=== PATIENT | male | born 1985 | race Caucasian/White ===

== ENCOUNTER 2022-01-13 15:12 | Outpatient (CLI) | payer OTHER, SELFPAY ==
[2022-01-13 19:25] LABS: SARS PCR* Negative SARS-CoV-2 (Negative)
== END 2022-01-13 15:13 | disposition home or self-care (01) ==
LOC: LONREF 15:12
PROVIDERS: PCP Family Medicine; Visit Provider Family Medicine
DX: Z20.822 Contact with and (suspected) exposure to COVID-19 (principal); R05.9 Cough, unspecified
CPT/HCPCS: 87635

== ENCOUNTER 2023-01-28 14:01 | Outpatient (REF) | payer OTHER, SELFPAY ==
[2023-01-28 15:00] LABS: Basophils Percent Auto 0.6 % (0.0-3.0); Eosinophils Percent Auto 2.2 % (0.0-7.0); Hemoglobin* 14.6 gm/dL (13.5-17.5); Lymphocytes Percent Auto 34.7 % (20-44); Mean Corpuscular HGB Conc 34 gm/dL (32-36); Mean Corpuscular Hemoglobin 30 pg (26-34); Mean Corpuscular Volume 88 fL (80-100); Neutrophils Percent Auto 52.5 % (42.0-72.0); Platelet Count* 269 K/uL (140-440); RDW Coefficient of Variation % 12.6 % (11.5-15.5)
[2023-01-28 15:33] LABS: Slide Review Reflex No
[2023-01-28 16:35] LABS: Albumin* 4.6 g/dL (3.3-5.0); Chloride* 105 mmol/L (96-114)
[2023-01-28 16:36] LABS: Potassium* 4.4 mmol/L (3.6-5.1); Sodium* 140 mmol/L (135-149)
[2023-01-28 16:38] LABS: Anion Gap 6 mEq/L (7-15); Aspartate Amino Transferase* 40 U/L (12-35); Bilirubin Total* 0.6 mg/dL (0.1-1.5); Blood Urea Nitrogen* 11 mg/dL (5-24); Carbon Dioxide* 29 mmol/L (20-32); Cholesterol* 223 mg/dL (90-199); Creatinine* 0.7 mg/dL (0.5-1.5); Estimated Glomerular Filt Rate 122 ml/min; Total Protein* 7.6 g/dL (6.0-8.3)
[2023-01-28 16:39] LABS: Alanine Aminotransferase* 19 U/L (4-50); Alkaline Phosphatase* 57 U/L (40-150); Calcium* 9.3 mg/dL (8.4-10.6); Glucose* 105 mg/dL (60-115); HDL Cholesterol* 44 mg/dL (>=40)
[2023-01-28 17:23] LABS: Iron* 114 ug/dL (49-181)
[2023-01-28 17:33] LABS: Percent Iron Saturation 33 % (20-50); Total Iron Binding Capacity 342 ug/dL (261-462)
[2023-01-28 17:40] LABS: Vitamin D 25 Hydroxy* 26 ng/mL (30-80)
[2023-01-28 17:42] LABS: Free T4 Free Thyroxine* 1.05 ng/dL (0.70-1.85)
[2023-01-28 17:55] LABS: Thyroid Stimulating Hormone* 0.677 uIU/mL (0.270-4.20)
[2023-01-28 17:59] LABS: Ferritin* 64.6 ng/mL (17.9-464.0)
[2023-01-28 19:17] LABS: Triglycerides* 179 mg/dL (40-149)
[2023-01-28 19:18] LABS: LDL Cholesterol Calculated 148 mg/dL (<100)
[2023-01-28 22:35] LABS: Hemoglobin A1C* 5.6 % (0-5.6)
[2023-01-30 17:33] LABS: Folate, Serum 18.5 ng/mL (>=5.9)
[2023-01-31 10:04] LABS: Free T3 3.3 pg/mL (2.5-4.3)
== END 2023-01-28 14:02 | disposition home or self-care (01) ==
LOC: NPLBINS 14:01
PROVIDERS: PCP Family Medicine; Visit Provider Nurse Practitioner Psychiatric/Mental Health
DX: F32.1 Major depressive disorder, single episode, moderate (principal)
CPT/HCPCS: 36415; 80053; 80061; 82306; 82728; 82746; 83036; 83540; 83550; 84439; 84443; 84481; 85025

== ENCOUNTER 2023-09-16 19:25 | Outpatient (CLI) | payer OTHER, SELFPAY ==
--- NOTE | 2023-09-22 12:30 | W.PM.SLEEP ---
Sleep Study Details Details Interpreting Provider: Alpehs Date of Sleep Study: 09/16/23 Sleep Study Details: STUDY TYPE:? Home unattended ? BMI:? 28.7 ORDERING PROVIDER:? Virginie INDICATION:? Concern about sleep apnea ? SLEEP SUMMARY:? 498 minutes monitored RESPIRATORY SUMMARY:? AHI 19.4, supine 20.3, left lateral 13.3, right lateral 5th 15.3 Low oxygen 82 0.7% of study oxygen less than 90% Snoring 82.8% PERIODIC LIMB MOVEMENTS OF SLEEP:? Not recorded CARDIAC:? Range 51-96, mean 64.6 beats per minute IMPRESSION:? Moderate obstructive sleep apnea with some supine position dependency RECOMMENDATION: Treatment options include CPAP AutoSet, dental appliance and/or airway expansion surgery.
== END 2023-09-16 19:26 | disposition home or self-care (01) ==
LOC: SLEEP 19:27
PROVIDERS: PCP Family Medicine; Visit Provider Family Medicine
DX: G47.33 Obstructive sleep apnea (adult) (pediatric) (principal)
CPT/HCPCS: 95806

== ENCOUNTER 2024-04-05 17:12 | Outpatient (CLI) | payer BC, SELFPAY | END 2024-04-05 17:13 | disposition home or self-care (01) | PROVIDERS: PCP Family Medicine; Visit Provider Family Medicine | DX: R53.83 Other fatigue (principal); Z13.228 Encounter for screening for other metabolic disorders; Z13.29 Encounter for screening for other suspected endocrine disorder; Z13.0 Encounter for screening for diseases of the blood and blood-forming organs and certain disorders involving the immune mechanism | CPT/HCPCS: 80053; 84443; 85025 ==

== ENCOUNTER 2024-09-14 04:01 | Emergency (ER) | payer BC, SELFPAY ==
--- OUTSIDE RECORDS SUMMARY | 2024-09-14 04:03 | XMS_ITS | Clinical Summary ---
Author Organization [facility] Address [address] [place] [id number] Care Team Providers Care Social Science Research Assistant Name Role Phone Estiven Norman MD Primary Care Provider [phone] Allergies Active Allergy Reactions Criticality Noted Date Comments Ragweed Pollen Other - Describe In Comment Field 07/21/2016 Watery eyes Medications No known medications Active Problems Problem Noted Date Diagnosed Date Herniated nucleus pulposus, L4-5 right 7 Immunizations Immunization Administration Dates Next Due AMB Influenza, IIV4 PF (=>6 mos Flulaval,Fluzone Fluarix)(Flu Clinic Only) 01/06/2020 Social History Tobacco Use Types Packs/Day Years Used Date Smoking Tobacco: Never Smokeless Tobacco: Former Chew Tobacco Cessation:Counseling Given: Yes Alcohol Use Standard Drinks/Week Comments Yes 40 (1 standard drink = 0.6 oz pu re alcohol) Sex and Gender Information Value Date Recorded Sex Assigned at Not on file Legal Sex Male 5:22 AM [employer] Gender Identity Not on file Sexual Orientation Not on file Obstetrics History Last Filed Vital Signs Vital Sign Reading Time Taken Comments Blood Pressure 128/76 01/12/2019 3:14 PM CDT Pulse 78 01/12/2019 3:14 PM CDT Temperature 36.7 C (98 F) 07/22/2016 1:20 PM CDT Respiratory Rate 14 07/22/2016 3:08 PM CDT Oxygen Saturation 98% 01/12/2019 3:14 PM CDT Inhaled Oxygen Concentration - - Weight 92.1 kg (203 lb) 11/03/2018 11:49 AM CDT Height 182.9 cm (6') 07/22/2016 10:14 AM CDT Body Mass Index 27.53 07/22/2016 10:14 AM CDT Plan of Treatment Health Maintenance Due Date Last Done Comments Tdap 1997 Depression screening for age 12+ 1998 HIV for age 15-65 2001 Hepatitis C screening for ag e 18-79 2004 Hepatitis B series for 19+ ( 1 of 3 - 19+ 3-dose series) 2005 Tetanus booster 2006 BMI (ht and wt on same day) for age 18+ 06/09/2017 06/09/2016 Lipids for age 35-44 2021 COVID-19 vaccine series (2023- season) 2023 Influenza Vaccine (Season Ended) 2024 01/06/20 Pneumococcal series for age 6-49 Aged Out No longer eligible based on patient's age to complete this topic Insurance [facility] Advance Directives * Full Code (Latest Code Status on File) Date Activated Date Inactivated Comments 07/22/2016 9:49 AM 07/22/2016 5:25 PM Question Answer Comments Code Status Discussion: Discussed Care Teams Social Science Research Assistant Relationship Specialty Start Date End Date Estiven Norman MD PCP - General Family Practice 07/17/16
[2024-09-14 04:05] VITALS: BP 129/99; PULSE 78; RESP 16; TEMP 36.6; O2SAT 98; BMI 29.2
--- NOTE | 2024-09-14 04:33 | ED.GENADULT ---
HPI - General Adult General Chief complaint: Laceration/Wound Stated complaint: Cut Right Thumb on metal Time Seen by Provider: 09/14/24 04:13 Source: patient Mode of arrival: ambulatory Limitations: no limitations History of Present Illness HPI narrative: Patient reports that he cut his right thumb on a piece of sheet metal 5 hours ago and presents to the ED in the wee hours concerned that it may need stitches. It is a slightly with manipulation but when left undisturbed, no active bleeding. Uncertain of last tetanus shot but feels like it is up-to-date. No other areas of injury tonight but he has a spot he would like me to look at on his left middle finger as well now. No fevers, denies other acute concerns. Past medical history notable for anxiety, home meds her lamotrigine and duloxetine. Allergies reviewed as noted. No self-injury. Related Data Previous Rx's ?Medication ?Instructions ?Recorded lamotrigine 150 mg tablet 150 mg PO QDAY #90 tabs 05/02/24 duloxetine 60 mg capsule,delayed 60 mg PO DAILY #90 caps 05/27/24 release Allergies Allergy/AdvReac Type Severity Reaction Status Date / Time ragweed pollen Allergy Mild congestion Verified 05/02/24 09:40 bupropion AdvReac Unknown [place] Like Verified 05/02/24 09:40 Throat was Closing Up venlafaxine AdvReac Unknown Hyperhidros Verified 05/02/24 09:40 [facility] Medical History Obstructive sleep apnea on CPAP ?G47.33 - Obstructive sleep apnea (adult) (pediatric) (ICD-10) Delirium tremens ?F10.931 - Alcohol use, unspecified with withdrawal delirium (ICD-10) History of seizure due to alcohol withdrawal ?Z87.898 - Personal history of other specified conditions (ICD-10) ?Z86.59 - Personal history of other mental and behavioral disorders (ICD-10) Seasonal allergies (01/15/11) ?J30.2 - Other seasonal allergic rhinitis (ICD-10) Generalized anxiety disorder ?F41.1 - Generalized anxiety disorder (ICD-10) Mixed hyperlipidemia ?E78.2 - Mixed hyperlipidemia (ICD-10) History of alcohol abuse ?F10.11 - Alcohol abuse, in remission (ICD-10) Herniation of intervertebral disc between L4 and L5 ?M51.26 - Other intervertebral disc displacement, lumbar region (ICD-10) Surgical History Status post lumbar discectomy ?Z98.890 - Other specified postprocedural states (ICD-10) Family History Mother Colon cancer Breast cancer Familial polyposis of colon Sister Brain cancer Social History Narrative: , three sons, [employer], history ETOH abuse currently sober What is your current living situation?: I presently have a place to live Problems where you live: no known problems In the past 12 months, utilities in danger of being shut off: no In past 12 months, lack of transportation kept you from medical appts, meetings, work, or getting things needed for daily living: no In the past 12 mos, have been you worried that your food would run out before you had money to buy more?: never true In the past 12 mos, the food you bought just didn't last and you didn't have money to buy more?: never true Smoking Status: Never smoker Do you use any of these nicotine containing products: None How often do you have a drink containing alcohol: never AUDIT-C Alcohol total score: 0 Non-prescribed substance use: denies use How often does anyone, including family, friends and others, physically hurt you: never How often does anyone, including family, friends and others, insult or talk down to you: never How often does anyone, including family, friends and others, threaten you with harm: never How often does anyone, including family, friends and others, scream or curse at you: never Exam Const: Vital Signs, click to edit/add: Vital Signs - 24 hr 09/14/24 04:05 Temperature 98 F Pulse Rate [Pulse Oximeter] 78 Respiratory Rate 16 Blood Pressure [Ri ght Upper Arm] 129/99 H Pulse Oximetry 98 Oxygen Delivery Me thod Room Air Documenting provider has reviewed patient's vital signs: yes Common normals: no apparent distress General appearance: comfortable and well kempt HENMT: Common normals: normocephalic Head and scalp: normocephalic Face and sinus: normal facial exam Eye: General eye: normal appearance of both eyes Resp: Common normals: normal respiratory effort Effort & inspection: able to speak in complete sentences Extremity: Other: Right thumb has a 1 cm laceration on the dorsum of the thumb, adjacent to the interphalangeal joint, medial side. It is not particularly deep, dermal thickness, no deeper structure involvement. Not currently bleeding. Gapes only with bending the thumb, but only by about 2 mm tops. Normal range of motion and movement of thumb. Normal capillary refill. Normal peripheral pulses. Normal movement of hand. On the opposite left 3rd finger he asked me to look at this that as well. No redness, no swelling. There is a slight metal sliver shaving deep underneath the dermis, I can see the dark spot. I advised patient to let this come up to the surface naturally or let his body slowly dissolve it. He asks about removal, I tell him that this is not in his best interest. Neuro: Other: Normal neurological exam of right hand Psych: Appearance: well kempt Attitude: engaged Attention/concentration: attention grossly intact Skin: Narrative: No other injuries identified besides that on the right thumb. Course Course ED Course: 1 cm laceration adjacent to interphalangeal joint on dorsum of right thumb. Gape slightly with bending, not actively bleeding. Patient wishes for closure. We discussed skin glue, Steri-Strips and stitches. Stitches are nice over the joint line but are probably not necessary since this is very superficial. Counseled patient that as long as we can get the wound edges to stick together for about 48 hours, this will close without complication. Stitches would require removal which is inconvenient for him. Confirmed that his tetanus was in 2017, will update this today. We elect for Steri-Strips and skin glue combination. Laceration repair: Area was cleansed with Hibiclens, no foreign body identified. Dried. Thin layer of Dermabond was applied on either side of the laceration, then Steri-Strips applied with counter traction, closing the wound nicely, pressure applied for about 10 seconds to ensure that this held down nicely. Then an additional Steri-Strips was applied beside this to completely cover wound and then an opposite perpendicular Steri-Strips for strength. Steri-Strips were then coated with a thin layer of Dermabond for additional support. Once dry, the nurse will wrap this with gauze. Patient is counseled on care. Try keep the current gauze in place for the next few hours well this completely it dries and sets up. It is okay to return to work but I would like for him to wear a glove over the thumb to help avoid damage to the Steri-Strips and Dermabond. It is okay to get it briefly wet but no deep submerging bath. Be careful in the shower and primarily use the other hand to wash and [place] self, avoiding aggressive movements with the thumb. Steri-Strips will stay on for probably about 3-5 days, okay to gently trim away the edges once it starts to peel if it is been at least 48 hours. Infection is rare but would include redness, increased drainage or severe increased pain, these would all warrant re-evaluation. Okay to use Tylenol and/or ibuprofen for mild discomfort. Patient verbalizes understanding and agreement. Vital Signs Vital signs: Initial Vital Signs Temperature 98 F 09/14/24 04:05 Temperature Source Temporal Artery Scan 09/14/24 04:05 Pulse Rate 78 09/14/24 04:05 Respiratory Rate 16 09/14/24 04:05 Blood Pressure 129/99 H 09/14/24 04:05 Blood Pressure Mean 109 H 09/14/24 04:05 Blood Pressure Position Sitting 09/14/24 04:05 Pulse Oximetry 98 09/14/24 04:05 Oxygen Delivery Method Room Air 09/14/24 04:05 Vital Signs Temperature 98 F 09/14/24 04:05 Pulse Rate 78 09/14/24 04:05 Respiratory Rate 16 09/14/24 04:05 Blood Pressure 129/99 H 09/14/24 04:05 Pulse Oximetry 98 09/14/24 04:05 Oxygen Delivery Method Room Air 09/14/24 04:05 Temperature 98 F 09/14/24 04:05 Pulse Rate 78 09/14/24 04:05 Respiratory Rate 16 09/14/24 04:05 Blood Pressure 129/99 H 09/14/24 04:05 Pulse Oximetry 98 09/14/24 04:05 Oxygen Delivery Method Room Air 09/14/24 04:05 Discharge Plan Discharge Clinical Impression: Laceration Patient Disposition: Home, Self-Care Condition: Improved Instructions: Skin Adhesive Strips (ED) Additional Instructions: As we discussed, a small laceration to her thumb was closed with a combination of skin glue and adhesive strips. This is easier for you to care for, reduce his chance of infection, wheeze to less scar and does not require stitch removal. Overall, it heals well and is much more convenient for you. The strips and glue will need to stay on for at least 48 hours. Water can drip over it but do not immerse or submerge with Elisabet bandage in water please. You may take quick showers, but use the other hand to aggressively scrub. Try to avoid tight gripping with the thumb. For comfort, you may apply dry gauze wrap over the top of the glue and Steri-Strips, but avoid taping it to the glue and Steri-Strips. This is because it could loosen or remove these prior to healing. I do recommend that you wear gloves when working to avoid cuts but also to help keep this wound clean and dry. The strips we usually stay on for 3-5 days, gradually peeling off starting at the edges 1st. You may gently trim with scissors the peeling edges away but avoid aggressively ripping off the tape, as this will cause the wound to reopen. Mild swelling and discomfort is common. His okay to use Tylenol 1000 mg every 6 hours and or ibuprofen 600 mg every 6 hours for discomfort. Your tetanus shot was updated today and is due for update again in 2034. Activity Level: Activity as Tolerated Discharge Diet: Regular Prescriptions: No Action lamotrigine 150 mg tablet 150 mg PO QDAY Qty: 90 1RF duloxetine 60 mg capsule,delayed release(DR/EC) 60 mg PO DAILY Qty: 90 1RF Follow Up/Referrals: Reymundo Rachel MD [Primary Care Provider, Family Practice] Stand Alone Forms: Playdate App Info Instructions
[2024-09-14] MEDS: TETANUS-DIPHTHERIA TOXOIDS/PF 0.5 ML SYRINGE IM (04:43)
== END 2024-09-14 04:45 | disposition home or self-care (01) ==
PROVIDERS: Emergency Provider Family Medicine; PCP Family Medicine
DX: S61.011A Laceration without foreign body of right thumb without damage to nail, initial encounter (principal); Z23 Encounter for immunization; W26.9XXA Contact with unspecified sharp object(s), initial encounter
CPT/HCPCS: 12001; 90471; 90714; 99282; 99283